=== PATIENT | female | born 2005 | race Two or more races ===

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

== ENCOUNTER 2024-04-22 05:35 | Inpatient (IN) | payer MEDICAID ==
[~2024-04-22] VITALS: Ht 157.5 cm; Wt 80.0 kg
[~2024-04-22 05:35] MED LIST: PREN-96 PO
[2024-04-22] MEDS: SODIUM CHLORIDE 0.9% 1,000 ML IVB ONE (06:24)
[2024-04-22 07:44] LABS: Basophils # (auto) 0 10 ^3/uL (0-0.2); Basophils % (auto) 0.3 % (0.0-2.0); Eosinophils # (auto) 0.1 10 ^3/uL (0-0.8); Eosinophils % (auto) 0.6 % (0.0-7.0); Hemoglobin 11.6 g/dL (12.2-16.2); Lymphocytes # (auto) 1.9 10 ^3/uL (0.4-5.4); Lymphocytes % (auto) 14.1 % (10.0-50.0); Mean Corpuscular Hemoglobin 25.8 pg (28.0-32.0); Mean Corpuscular Hgb Conc. 32.1 g/dL (32.0-36.0); Mean Corpuscular Volume 80.3 fL (80.0-100.0); Monocytes # (auto) 0.8 10 ^3/uL (0-1.3); Monocytes % (auto) 6.3 % (0.0-12.0); Neutrophils # (auto) 10.4 10 ^3/uL (1.6-8.6); Neutrophils % (auto) 78.7 % (37.0-80.0); Red Blood Cells 4.49 10^6/uL (4.0-5.20); Red Cell Distribution Width 16.1 % (11.8-14.3); White Blood Cell 13.3 10^3/uL (4.4-10.8)
[2024-04-22 07:56] LABS: Alanine Aminotransferase 46 U/L (7-40); Albumin 4.2 g/dL (3.2-4.8); Alkaline Phosphatase 132 U/L (46-116); Anion Gap 7 (5-15); Aspartate Aminotransferase 56 U/L (13-40); BUN/Creatinine Ratio 18.1 (10.0-20.0); Bilirubin, Total 0.4 mg/dL (0.2-1.0); Blood Urea Nitrogen 13 mg/dL (9-23); Calcium 9.2 mg/dL (8.5-10.1); Carbon Dioxide 26 mmol/L (20-30); Chloride 106 mmol/L (98-107); Glucose 94 mg/dL (74-106); Potassium 4.3 mmol/L (3.5-5.1); Sodium 139 mmol/L (136-145); Total Protein 6.8 g/dL (5.7-8.2)
[2024-04-22] MEDS: ONDANSETRON HCL 4 MG/2 ML VIAL IV ONE (07:58)
[2024-04-22] MEDS: PANTOPRAZOLE 40 MG/10 ML VIAL INJ IV ONE (07:58)
[2024-04-22] MEDS: MORPHINE SULFATE 4 MG/ML SYR/VIAL IV ONE (07:58)
[2024-04-22 08:38] LABS: Lipase 48 U/L (12-53)
[2024-04-22 12:29] LABS: INR 1.06 (0.9-1.15); Prothrombin Time 11.2 sec (9.3-11.8)
[2024-04-22] MEDS: SODIUM CHLORIDE 0.9% 1,000 ML IV SCH (14:00)
[2024-04-22] MEDS: HYDROcodone-ACET 5/325MG TAB PO PRN (15:58)
[2024-04-22 17:55] VITALS: BP 129/71; PULSE 63; PULSE 96; RESP 16; RESP 20; TEMP 98.7; O2SAT 98; O2SAT 99
[2024-04-22 20:00] VITALS: PULSE 53; RESP 16; O2SAT 99
[2024-04-22 21:00] VITALS: BP 115/55; PULSE 53; RESP 16; TEMP 98; O2SAT 99
[2024-04-22] MEDS: metroNIDAZOLE 500MG/100ML 100 ML IV SCH (21:58)
[2024-04-23] VITALS (8 sets, daily range): BP systolic 106–132; BP diastolic 54–79; PULSE 45–90; RESP 10–19; TEMP 97.5–98.4; O2SAT 93–99
[2024-04-23 06:05] LABS: Basophils # (auto) 0 10 ^3/uL (0-0.2); Eosinophils # (auto) 0.1 10 ^3/uL (0-0.8); Hematocrit 35.4 % (36.0-46.0); Hemoglobin 11.5 g/dL (12.2-16.2); Lymphocytes # (auto) 2.4 10 ^3/uL (0.4-5.4); Mean Corpuscular Hemoglobin 26.2 pg (28.0-32.0); Mean Corpuscular Hgb Conc. 32.4 g/dL (32.0-36.0); Mean Corpuscular Volume 80.8 fL (80.0-100.0); Monocytes # (auto) 0.3 10 ^3/uL (0-1.3)
[2024-04-23 06:07] LABS: Basophils % (auto) 0.6 % (0.0-2.0); Eosinophils % (auto) 2.4 % (0.0-7.0); Lymphocytes % (auto) 43.6 % (10.0-50.0); Monocytes % (auto) 4.8 % (0.0-12.0); Neutrophils # (auto) 2.7 10 ^3/uL (1.6-8.6); Neutrophils % (auto) 48.6 % (37.0-80.0); Red Blood Cells 4.39 10^6/uL (4.0-5.20); Red Cell Distribution Width 16.1 % (11.8-14.3); White Blood Cell 5.5 10^3/uL (4.4-10.8)
[2024-04-23 06:25] LABS: Alanine Aminotransferase 109 U/L (7-40); Alkaline Phosphatase 161 U/L (46-116); Anion Gap 6 (5-15); BUN/Creatinine Ratio 8.3 (10.0-20.0); Blood Urea Nitrogen 6 mg/dL (9-23); Calcium 8.8 mg/dL (8.5-10.1); Carbon Dioxide 25 mmol/L (20-30); Chloride 109 mmol/L (98-107); Glucose 78 mg/dL (74-106); Magnesium 1.9 mg/dL (1.6-2.6); Sodium 140 mmol/L (136-145)
[2024-04-23 06:26] LABS: Albumin 3.8 g/dL (3.2-4.8); Aspartate Aminotransferase 83 U/L (13-40); Bilirubin, Total 0.4 mg/dL (0.2-1.0); Total Protein 6.2 g/dL (5.7-8.2)
[2024-04-23] MEDS ORDERED: fentaNYL CITRATE 100 MCG/2 ML VL ONE (08:56)
[2024-04-23] MEDS ORDERED: ceFAZolin 2 GM/D5W50ml 50 ML IV ONE (08:56)
[2024-04-23] MEDS ORDERED: MIDAZOLAM HCL 2MG/2ML 2ml VIAL (1mg/ml) ONE (08:56)
[2024-04-23] MEDS ORDERED: ONDANSETRON HCL 4 MG/2 ML VIAL ONE (08:57)
[2024-04-23] MEDS ORDERED: PROPOFOL 10 MG/ML 20 ML IV ONE (08:57)
[2024-04-23] MEDS ORDERED: LIDOCAINE 2% (LOCAL ANESTH.) PF 5ml SDV ONE (08:57)
[2024-04-23] MEDS ORDERED: DexAMETHasone SOD PHOS 10MG/1ML VIAL INJ ONE (08:57)
[2024-04-23] MEDS ORDERED: SUCCINYLCHOLINE CHLORIDE 20 MG/ML 10ML VIAL IV ONE (08:59)
[2024-04-23] MEDS ORDERED: ROCURONIUM 10MG/ML 10ML VIAL IV ONE (08:59)
[2024-04-23] MEDS: cefTRIAXone 1GM/50ML D5W 50 ML IV SCH (09:00)
[2024-04-23] MEDS ORDERED: HYDROmorphone HCL 2 MG/ML VL/or syr ONE (09:34)
[2024-04-23] MEDS ORDERED: SUGAMMADEX 200mg/2ml Vial (100MG/ML) IV ONE (09:46)
[2024-04-23] MEDS: ENOXAPARIN SOD 40 MG/0.4 ML SYRINGE SC SCH (10:00)
[2024-04-23] MEDS: LIDOCAINE W/ EPINEPHRINE 1% 20ML VIAL ONE (10:00)
[2024-04-23] MEDS: BUPIVACAINE 0.25% INJ 50ML VIAL ONE (10:00)
[2024-04-23] MEDS: HYDROmorphone HCL 2 MG/ML VL/or syr IV PRN ×2 (10:36→23:40)
[2024-04-23] MEDS: MORPHINE SULFATE INJ 2 MG/ml SYRG IV PRN (14:10)
[2024-04-23] MEDS: ONDANSETRON HCL 4 MG/2 ML VIAL IV PRN (16:24)
[2024-04-24] VITALS (8 sets, daily range): BP systolic 110–128; BP diastolic 56–76; PULSE 53–70; RESP 16–20; TEMP 97.8–98.7; O2SAT 93–99
[2024-04-24] MEDS: ONDANSETRON HCL 4 MG/2 ML VIAL IV ONE (04:11)
[2024-04-24] MEDS: ACETAMINOPHEN 325 MG TAB PO PRN (07:24)
[2024-04-24] MEDS ORDERED: NALO4SPR2 (13:46)
[2024-04-24] MEDS ORDERED: AUG875T PO (13:46)
[2024-04-24] MEDS ORDERED: HYDR-4902 PO (13:46)
[2024-04-24] MEDS ORDERED: DOCU-94 PO (13:46)
== END 2024-04-24 20:19 | disposition home or self-care (01) | DRG 548 ==
LOC: EDBD 05:35 → ER 05:35 → EDUNIT# 05:35 → OVERFLOW 13:52 → CENTRAL 15:18
PROVIDERS: ADMIT Internal Medicine; ATTEND Internal Medicine
PROC: 0FT44ZZ Resection of Gallbladder, Percutaneous Endoscopic Approach (ICD-10-PCS; principal; 2024-04-23 09:12)
DX: O99.63 Diseases of the digestive system complicating the puerperium (principal); K80.00 Calculus of gallbladder with acute cholecystitis without obstruction; D72.829 Elevated white blood cell count, unspecified; R74.01 Elevation of levels of liver transaminase levels; Z83.3 Family history of diabetes mellitus
CPT/HCPCS: 36415; 71045; 74181; 76705; 80053; 83690; 83735; 85025; 85610; 86850; 86900; 86901; 87081; C9113; G0378; J0330; J1100; J2001; J2250; J2405; J2704; J3490